=== PATIENT | female | born 1950 | race Caucasian/White ===

== ENCOUNTER → 2020-05-23 | Outpatient (CLI) | payer MEDICARE, OTHER ==
[~2020-05-23] MED LIST: DOXYCYCLINE 10100 MG PO; LORTAB 5/500 501 TAB PO; PREDNISONE20 MG PO; SYNTHROID PO; SYNTHROID0.125 MG/T PO
== END ==
LOC: ZCOL.LAB 15:46
DX: Z20.828 Contact with and (suspected) exposure to other viral communicable diseases (principal)